=== PATIENT | male | born 1955 | race Caucasian/White ===

== ENCOUNTER 2017-11-26 11:02 | Emergency (ER) | payer OTHER ==
[~2017-11-26] VITALS: Ht 182.9 cm; Wt 110.0 kg
[2017-11-26 11:25] VITALS: BP 160/83; PULSE 74; RESP 16; TEMP 98.9; O2SAT 98
[2017-11-26] MEDS ORDERED: METO25TA3 PO (11:32)
[2017-11-26] MEDS ORDERED: MEGA RED PO (11:32)
[2017-11-26] MEDS ORDERED: COQ150CA PO (11:32)
[2017-11-26] MEDS ORDERED: ROSU10 PO (11:32)
[2017-11-26] MEDS ORDERED: OMEP20TA93 PO (11:32)
[2017-11-26] MEDS ORDERED: ASPI81CH7 CHEW (11:32)
[2017-11-26] MEDS ORDERED: OSEL75 PO (11:52)
--- NOTE | 2017-11-26 11:56 | PD ---
HPI Chief Complaint: Cold / Flu Symptoms Time Seen by Provider: 11:32 Travel History International Travel<30 days: No Contact w/Intl Traveler<30days: No Traveled to known affect area: No History of Present Illness HPI 62-year-old male presents to the ED for evaluation of body aches, sinus congestion, clear rhinorrhea, nonproductive cough. Onset this morning. Patient endorses receiving this years flu shot. He states that his is currently hospitalized with the flu. He denies fever, chills, nausea, vomiting. No treatment attempt at home. PFSH Past Medical History Hx Anticoagulant Therapy: Yes (BABY ASA) Cardiovascular Problems: Yes (HTN, CHOL, STENTS) High Cholesterol: Yes Diminished Hearing: No Hypertension: Yes Tetanus Vaccination: Unknown Past Surgical History Cardiac Surgery: Yes (STENTS) Cholecystectomy: Yes Other Surgery: Yes (INGUINAL HERNIAS TIMES 2) Social History Alcohol Use: Yes (SOC) Tobacco Use: No Substance Use: No Allergies-Medications (Allergen,Severity, Reaction): Coded Allergies: No Known Allergies (Unverified , 11/26/17) Reported Meds & Prescriptions Reported Meds & Active Scripts Active Tamiflu (Oseltamivir Phosphate) 75 Mg Cap 75 Mg PO BID 5 Days Reported [Jc Red] 500 Mg PO DAILY Crestor (Rosuvastatin Calcium) 10 Mg Tab 10 Mg PO QOD Metoprolol Tartrate 25 Mg Tab 12.5 Mg PO BID Coq10 (Coenzyme Q10 (Ubidecarenone)) 50 Mg Cap 100 Mg PO DAILY Omeprazole 20 Mg Tab 20 Mg PO DAILY Aspirin Children's (Aspirin) 81 Mg Chew 81 Mg CHEW DAILY Review of Systems Except as stated in HPI: all other systems reviewed are Neg Physical Exam Narrative GENERAL: Well-nourished, well-developed ill-appearing white male in no acute distress. SKIN: Warm and dry. HEAD: Normocephalic. Atraumatic. EYES: No scleral icterus. No injection or drainage. PERRLA. EOMI. ENT: Pearly reilly tympanic membranes bilaterally. Nasal mucosa is moist. Oropharynx without erythema, edema or exudate. NECK: Supple, trachea midline. No JVD or lymphadenopathy. CARDIOVASCULAR: Regular rate and rhythm without murmurs, gallops, or rubs. RESPIRATORY: Breath sounds clear and equal bilaterally. No accessory muscle use. GASTROINTESTINAL: Abdomen soft, non-tender, nondistended. + Bowel sounds MUSCULOSKELETAL: No cyanosis, or edema. BACK: Nontender without obvious deformity. No CVA tenderness. Data Data Last Documented VS Vital Signs Date Time Temp Pulse Resp B/P (MAP) Pulse Ox O2 Delivery O2 Flow Rate FiO2 11/26/17 11:25 98.9 74 16 160/83 (108) 98 [facility] Medical Decision Making Medical Screen Exam Complete: Yes Emergency Medical Condition: Yes Differential Diagnosis Viral syndrome versus influenza versus pharyngitis versus other Narrative Course 62-year-old male presents to the ED with complaint of cold symptoms, onset this morning. Patient's is currently hospitalized with influenza. On exam patient is ill-appearing but ENT exam is unremarkable. Chest CTA be. Given his recent exposure will initiate Tamiflu. Patient's cautioned to continue with symptomatic treatment as needed, especially treating fever. He states that he has a neighbor who can check on him for the next few days. He is instructed to return for worsening symptoms. He is stable and discharged home. Diagnosis Primary Impression: Exposure to influenza Additional Impression: Viral syndrome Referrals: Primary Care Physician Patient Instructions: General Instructions, Influenza (ED) Additional Instructions: Rest, hydrate. Take Tamiflu as prescribed. Continue with symptomatic treatment. Alternating Motrin and Tylenol every 4-6 hours as needed for continued fever. Increase handwashing frequently to avoid the spread of the virus to other family members and the community. Disinfect commonly touched surfaces such as light switches, microwaves, remote controls. Replace toothbrush at the end of this illness. Follow-up with the primary care provider this week. Return to the ED for WORSENING SYMPTOMS or any urgent or emergent medical condition. Med/Other Pt SpecificInfo: Prescription(s) given Scripts Oseltamivir (Tamiflu) 75 Mg Cap 75 MG PO BID for Mgmt Viral Infection for 5 Days, #10 CAP 0 Refills Prov: Allegra Rodriguez MD 11/26/17 Disposition: 01 DISCHARGE HOME Condition: Stable Love Santos Nov 26, 2017 11:55
== END 2017-11-26 12:02 | disposition home or self-care (01) ==
LOC: PHEFT 11:02
DX: B34.9 Viral infection, unspecified (principal); M79.1 Myalgia; R09.81 Nasal congestion; J34.89 Other specified disorders of nose and nasal sinuses; R05 Cough; I10 Essential (primary) hypertension; E78.00 Pure hypercholesterolemia, unspecified; Z79.82 Long term (current) use of aspirin; Z20.828 Contact with and (suspected) exposure to other viral communicable diseases
CPT/HCPCS: 99283